=== PATIENT | male | born 1950 | race Caucasian/White ===

== ENCOUNTER 2019-01-23 18:44 | Emergency (ER) | payer SELFPAY ==
[~2019-01-23] VITALS: Ht 167.6 cm; Wt 68.2 kg
[2019-01-23 19:05] VITALS: BP 189/90
== END 2019-01-23 19:42 | disposition left against medical advice (07) ==
LOC: EMS 18:48
DX: R73.9 Hyperglycemia, unspecified (principal)
CPT/HCPCS: 93005